=== PATIENT | female | born 1940 | race Caucasian/White ===

== ENCOUNTER 2018-09-07 22:24 | Emergency (ER) | payer MEDICARE, OTHER ==
--- NOTE | 2018-09-07 22:49 | ED ---
HPI Chest Pain - HPI Summary HPI Summary: Pt is a 78 y/o female who presents to the ED c/o chest tightness. This morning she began to have lightheadedness and BLE edema. Tonight she was lying in bed when she began to have mid-sternal chest tightness, mild posterior headache, and racing palpitations. Pain is non-radiating. Pt denies any pain and rather states that it is uncomfortable. She denies any SOB, abdominal pain, N/V, heartburn, or diaphoresis. Pt notes that several days ago she was on a long bus ride. Her mother had an FL prior to 50 y/o. PMHx HTN, HLD. She denies any smoking. - History of Current Complaint Chief Complaint: EDChestPainROMI Hx Obtained From: Patient Onset/Duration: Started Hours Ago - This evening, Still Present Timing: Constant Current Severity: None Pain Intensity: 0 Pain Scale Used: 0-10 Numeric Chest Pain Location: Mid Sternal Chest Pain Radiates: No Character: Tightness Associated Signs and Symptoms: Positive: Chest Pain, Lightheadedness, Palpitations, Calf Pain/Swelling. Negative: Shortness of Breath, Diaphoresis, Nausea, Vomiting - Allergy/Home Medications Allergies/Adverse Reactions: Allergies Allergy/AdvReac Type Severity Reaction Status Date / Time No Known Allergies Allergy Verified 09/07/18 22:30 PMH/Surg Hx/FS Hx/Imm Hx Endocrine/Hematology History: Denies: Hx Diabetes Cardiovascular History: Reports: Hx Hypercholesterolemia, Hx Hypertension Respiratory History: Denies: Hx Asthma, Hx Chronic Obstructive Pulmonary Disease (COPD) Infectious Disease History: No Infectious Disease History: Denies: Traveled Outside the [place] in Last 30 Days - Family History Known Family History: Positive: Cardiac Disease - [place] - mother prior to 50 y/o - Social History Alcohol Use: Rare Hx Substance Use: No Substance Use Type: Reports: None Hx Tobacco Use: No Smoking Status (MU): Never Smoked Tobacco Review of Systems Negative: Skin Diaphoresis Positive: Palpitations - racing, Chest Pain - tightness Negative: Shortness Of Breath Negative: Abdominal Pain, Vomiting, Nausea, Other - heartburn Positive: Edema - BLE Neurological: Other - lightheadedness Positive: Headache - mild posterior All Other Systems Reviewed And Are Negative: Yes Physical Exam - Summary Physical Exam Summary: Appearance: well appearing, no pain distress Skin: warm, dry, reflects adequate perfusion Head/face: normal Eyes: EOMI, ARNALDO ENT: mucous membranes moist Neck: supple, non-tender Respiratory: CTA, breath sounds present Cardiovascular: RRR, pulses symmetrical, no LE edema Abdomen: non-tender, soft, no reproducible chest pain Bowel Sounds: present Musculoskeletal: normal, strength/ROM intact Neuro: normal, sensory motor intact, A&Ox3 Triage Information Reviewed: Yes Vital Signs On Initial Exam: Initial Vitals Temp Pulse Resp BP Pulse Ox 98 F 98 20 140/79 98 09/07/18 22:27 09/07/18 22:27 09/07/18 22:27 09/07/18 22:27 09/07/18 22:27 Vital Signs Reviewed: Yes Diagnostics - Vital Signs Vital Signs Temp Pulse Resp BP Pulse Ox 09/07/18 22:27 98 F 98 20 140/79 98 - Laboratory Result Diagrams: 09/07/18 22:59 09/07/18 22:59 Lab Statement: Any lab studies that have been ordered have been reviewed, and results considered in the medical decision making process. - Radiology CXR Radiology Interpretation Completed By: ED Physician Summary of Radiographic Findings: No acute process. Pending official radiology report. - EKG 22:32 Cardiac Rate: NL - 90 bpm EKG Rhythm: Sinus Rhythm ST Segment: Normal Ectopy: PACs Summary of EKG Findings: Nl axis Re-Evaluation - Re-Evaluation First Eval Re-Evaluation Time: 00:57 Change: Improved Comment: Pt feels fine and is ready to be discharged. Chest Pain Course/Dx - Course Course Of Treatment: Patient with mild chest discomfort and complaint of lower extremity edema though there is none seen on exam. She has no evidence of pneumonia on x-ray and her troponin, EKG or within normal limits. She was treated here with relief and will follow up closely with her primary care physician for outpatient stress testing. She did have several PACs which were treated with beta kusum and relieved. This may have been causing her slight discomfort. - Chest Pain Differential Diagnosis/HQI/PQRI: Acute FL, ACS, CHF, GI Disease, Lower Respiratory Infection, Other: - Arrhythmia - Diagnoses Provider Diagnoses: PAC (premature atrial contraction), Atypical chest pain Discharge - Sign-Out/Discharge Documenting (check all that apply): Patient Departure - Discharge Patient Received Moderate/Deep Sedation with Procedure: No - Discharge Plan Condition: Improved Disposition: HOME Prescriptions: Famotidine TAB* [Pepcid 20 MG TAB*] 20 mg PO BID #20 tab Metoprolol Tartrate TAB* [Lopressor TAB*] 12.5 mg PO BID #30 tab Patient Education Materials: Chest Pain (ED), Premature Atrial Contractions (ED ) Referrals: Espinoza De Souza MD [Primary Care Provider] - Additional Instructions: Take a baby aspirin daily. Return with chest pains, trouble breathing, pain in the legs, new symptoms, or other concerns as discussed. Call your doctor first thing in the morning to schedule follow-up and outpatient stress test. - Billing Disposition and Condition Condition: IMPROVED Disposition: Home - Attestation Statements Document Initiated by Clemente: Yes Documenting Scribe: Jailene Andre Provider For Whom Clemente is Documenting (Include Credential): Pablo Mora MD Scribe Attestation: Jailene Jaramillo, scribed for Pablo Mora MD on 09/08/18 at 0635. Scribe Documentation Reviewed: Yes Provider Attestation: The documentation as recorded by the Jailene whiteside accurately reflects the service I personally performed and the decisions made by , Pablo Mora MD Status of Scribe Document: Viewed
[2018-09-07] MEDS ORDERED: Aspirin 81 mg CHEW TAB* 81 MG TAB.CHEW PO ONE (23:09)
[2018-09-07] MEDS ORDERED: Metoprolol Tartrate IV* 1 MG/ML 5 ML VIAL IV ONE (23:09)
[2018-09-07] MEDS ORDERED: Famotidine TAB* 20 MG PO ONE (23:09)
[2018-09-07 23:27] LABS: INR 0.91 (0.82-1.09)
[2018-09-07 23:29] LABS: ABS Basophils 0.1 10^3/ul (0-0.2); ABS Eosinophils 0.2 10^3/ul (0-0.6); ABS Lymphocytes 3.2 10^3/ul (1.0-4.8); ABS Monocytes 0.7 10^3/ul (0-0.8); ABS Neutrophils 4.2 10^3/ul (1.5-7.7); ABS Nucleated RBC 0 10^3/ul; Eosinophil % 2.1 %; Hematocrit 40 % (35-47); Hemoglobin 13.7 g/dL (12.0-16.0); Lymphocyte % 37.9 %; Mean Corpuscular HGB Conc 34 g/dL (31-36); Mean Corpuscular Hemoglobin 31 pg (27-31); Mean Corpuscular Volume 90 fL (80-97); Nucleated Red Blood Cells % 0; Platelet Count 309 10^3/uL (150-450); Red Blood Count 4.46 10^6 /uL (3.70-4.87); Red Cell Distribution Width 13 % (10.5-15); White Blood Count 8.4 10^3/uL (3.5-10.8)
[2018-09-07 23:41] LABS: Albumin 4.6 g/dL (3.2-5.2); Albumin/Globulin Ratio 1.5 (1-3); BUN/Creatinine Ratio 29.6 (8-20); Calcium 10.1 mg/dL (8.6-10.3); EGFR African American 96.6 (>60); EGFR Non-African American 79.8 (>60); Potassium 3.6 mmol/L (3.5-5.0); Total Bilirubin 0.3 mg/dL (0.2-1.0); Total Protein 7.6 g/dL (6.4-8.9)
[2018-09-08 01:23] VITALS: BP 132/60
== END 2018-09-08 01:21 | disposition home or self-care (01) ==
LOC: ED 22:24
DX: I49.1 Atrial premature depolarization (principal); R07.89 Other chest pain
CPT/HCPCS: 36415; 71045; 80053; 83605; 83880; 84484; 85025; 85610; 93005; 96374; 99282; A9270-GY; J3490